=== PATIENT | female | born 1940 | race Caucasian/White ===

== ENCOUNTER → 2018-07-07 | Outpatient (CLI) | payer MEDICARE, OTHER ==
[2018-07-07 11:19] LABS: BASOPHILS # (AUTO) 0.03 x10^3/uL (0-0.1); BASOPHILS % (AUTO) 0 % (0-1); EOSINOPHILS # (AUTO) 0.23 x10^3/uL (0-0.4); EOSINOPHILS % (AUTO) 3 % (1-7); LYMPHOCYTES # (AUTO) 2.12 x10^3/uL (1-3.4); LYMPHOCYTES % (AUTO) 30 % (22-44); MD NO; MEAN CORPUSCULAR HEMOGLOBIN 29.4 pg (27.0-34.8); MEAN CORPUSCULAR HGB CONC 33.7 g/dL (32.4-35.8); MEAN CORPUSCULAR VOLUME 87.1 fL (80-100); MEAN PLATELET VOLUME 10.5 fL (7.4-10.4); MONOCYTES # (AUTO) 0.68 x10^3/uL (0.2-0.8); MONOCYTES % (AUTO) 9 % (2-9); NEUTROPHILS # (AUTO) 4.13 x10^3/uL (1.8-6.8); NEUTROPHILS % (AUTO) 58 % (42-75); PLATELET COUNT 210 x10^3/uL (130-400); RED BLOOD COUNT 4.69 x10^6/uL (3.82-5.3); RED CELL DISTRIBUTION WIDTH 14.1 % (9.6-15.2)
[2018-07-07 11:29] LABS: ANION GAP 5 mmol/L (5-15); CALCIUM 9.4 mg/dL (8.5-10.1); CHLORIDE 108 mmol/L (98-107); CREATININE 0.76 mg/dL (0.55-1.02)
== END | disposition home or self-care (01) ==
LOC: STAR 09:38
PROVIDERS: ATTEND Orthopaedic Surgery
DX: Z01.818 Encounter for other preprocedural examination (principal); M17.12 Unilateral primary osteoarthritis, left knee
CPT/HCPCS: 36415; 80048; 85025; 87081; 87147; 93005

== ENCOUNTER 2018-07-21 05:54 | Observation (INO) | payer MEDICARE, OTHER ==
[~2018-07-21] VITALS: Ht 157.5 cm; Wt 76.9 kg
[~2018-07-21 05:54] MED LIST: ASPI-496 PO; CYAN10005 PO; LEVO75TA5 PO; SIMV20TA3 PO; UBID100C24 PO; Vitamin D3 PO
[2018-07-21] MEDS ORDERED: TRANEXAMIC ACID 100 MG/ML, 10ML ONE (06:07)
[2018-07-21] MEDS ORDERED: KETOROLAC 60 MG/2 ML ONE (06:07)
[2018-07-21] MEDS ORDERED: SODIUM CHLORIDE 0.9% 50 ML ONE (06:08)
[2018-07-21] MEDS ORDERED: VANCOMYCIN 1,000 MG ONE (06:08)
[2018-07-21] MEDS ORDERED: EPINEPHRINE 1 MG/ML, 1ML ONE (06:08)
[2018-07-21] MEDS ORDERED: ROPIvacaine/PF 0.2%, 20 ML ONE (06:08)
[2018-07-21] MEDS ORDERED: LACTATED RINGERS 1,000 ML IV SCH (06:26)
[2018-07-21] MEDS ORDERED: GABAPENTIN 300 MG CAPSULE PO ONE (06:30)
[2018-07-21] MEDS ORDERED: ACETAMINOPHEN 500 MG TABLET PO ONE (06:30)
[2018-07-21] MEDS ORDERED: FENTANYL PF 250 MCG/5ML ONE (06:43)
[2018-07-21] MEDS ORDERED: MIDAZOLAM 1 MG/ML, 2ML ONE (06:43)
[2018-07-21] MEDS ORDERED: ALBUTEROL/IPRATROPIUM 2.5MG/0.5MG, 3 ML NPPB PRN (08:00)
[2018-07-21] MEDS ORDERED: MIDAZOLAM 1 MG/ML, 2ML IV PRN (08:00)
[2018-07-21] MEDS ORDERED: FENTANYL PF 100 MCG/2ML IV PRN (08:00)
[2018-07-21] MEDS ORDERED: PROMETHAZINE 25 MG/ML, 1ML IV PRN (08:00)
[2018-07-21] MEDS ORDERED: hydrALAzine 20 MG/ML, 1ML IV PRN (08:00)
[2018-07-21] MEDS ORDERED: HYDROmorphone 2 MG/ML, 1ML IVPush PRN ×2 (08:00→09:00)
[2018-07-21] MEDS ORDERED: ONDANSETRON 2MG/ML, 2ML IV PRN (08:00)
[2018-07-21] MEDS ORDERED: OXYcodone 5 MG/5 ML ORAL.SOL UDC PO PRN (08:00)
[2018-07-21] MEDS ORDERED: ONDANSETRON 2MG/ML, 2ML ONE (08:01)
[2018-07-21] MEDS ORDERED: LIDOCAINE-MPF 2% ,5ML ONE (08:01)
[2018-07-21] MEDS ORDERED: DEXAMETHASONE 4 MG/ML, 1ML ONE (08:01)
[2018-07-21] MEDS ORDERED: BUPIVACAINE/PF 0.25% ONE (08:01)
[2018-07-21] MEDS ORDERED: PROPOFOL 10 MG/ML, 20ML ONE (08:01)
[2018-07-21] MEDS ORDERED: CEFAZOLIN 1,000 MG ONE (08:01)
[2018-07-21] MEDS: D5%-0.45% NACL 1,000 ML IV SCH ×3 (08:40→22:55)
[2018-07-21] MEDS: LEVOTHYROXINE 75 MCG TABLET PO SCH (09:00)
[2018-07-21] MEDS ORDERED: PROMETHAZINE 12.5 MG SUPP PR PRN (09:00)
[2018-07-21] MEDS ORDERED: DEXAMETHASONE 4 MG/ML, 1ML IVPush SCH (09:00)
[2018-07-21] MEDS ORDERED: DIAZEPAM 5 MG TABLET PO PRN (09:00)
[2018-07-21] MEDS ORDERED: BISACODYL 10 MG SUPP PR PRN (09:00)
[2018-07-21] MEDS ORDERED: ONDANSETRON 4 MG TABLET PO PRN (09:00)
[2018-07-21] MEDS ORDERED: HYDROcodone/APAP 5/325 TABLET PO PRN (09:00)
[2018-07-21] MEDS ORDERED: MAGNESIUM HYDROXIDE 8%, 30ML UDC PO PRN (09:00)
[2018-07-21] MEDS ORDERED: METOCLOPRAMIDE 10MG TABLET PO PRN (09:00)
[2018-07-21] MEDS ORDERED: ZOLPIDEM 5MG TABLET PO PRN (09:00)
[2018-07-21] MEDS ORDERED: DIPHENHYDRAMINE 50 MG CAPSULE PO PRN (09:00)
[2018-07-21] MEDS: ASCORBIC ACID 500 MG TABLET PO SCH (09:00)
[2018-07-21] MEDS: FERROUS SULFATE 325 MG TABLET PO SCH ×2 (09:00→17:25)
[2018-07-21] MEDS ORDERED: METOCLOPRAMIDE 5 MG/ML, 2ML IVPush PRN (09:00)
[2018-07-21] MEDS: DOCUSATE 100 MG CAPSULE PO SCH ×2 (09:00→20:38)
[2018-07-21] MEDS: ACETAMINOPHEN 325 MG TABLET PO SCH ×3 (09:00→20:37)
[2018-07-21] MEDS ORDERED: SENNA/DOCUSATE TABLET PO PRN (09:00)
[2018-07-21] MEDS ORDERED: PROMETHAZINE 25 MG/ML, 1ML IM PRN (09:00)
[2018-07-21] MEDS: MULTIVITAMINS/MINERALS TABLET PO SCH (09:00)
[2018-07-21] MEDS ORDERED: ALUMINUM/MAG/SIMETHICONE 30 ML UDC PO PRN (09:00)
[2018-07-21] MEDS ORDERED: TRANEXAMIC ACID 1,000 MG in SODIUM CHLORIDE 0.9% 100 ML IVPB ONE (09:30)
[2018-07-21 09:50] VITALS: BP 143/74
[2018-07-21] MEDS: KETOROLAC 30 MG/1 ML IV SCH ×2 (10:00→17:25)
[2018-07-21] MEDS: CALCIUM/VITAMIN D3 250-125 TABLET PO SCH ×2 (11:49→17:25)
[2018-07-21 13:03] VITALS: BP 123/69
[2018-07-21] MEDS: CEFAZOLIN PMX 1GM/50ML 50 ML IVPB SCH ×2 (15:13→22:51)
[2018-07-21] MEDS ORDERED: ASPIRIN 81 MG TABLET EC PO SCH (18:00)
[2018-07-21 19:00] VITALS: BP 109/64
[2018-07-21] MEDS ORDERED: SIMVASTATIN 20 MG TABLET PO SCH (21:00)
[2018-07-21 23:48] VITALS: BP 130/58
[2018-07-22] MEDS: KETOROLAC 30 MG/1 ML IV SCH (02:01)
[2018-07-22] MEDS: ACETAMINOPHEN 325 MG TABLET PO SCH ×2 (03:00→08:24)
[2018-07-22 03:41] VITALS: BP 108/65
[2018-07-22] MEDS ORDERED: DEXAMETHASONE 4 MG/ML, 1ML IVPush ONE (06:00)
[2018-07-22] MEDS ORDERED: RIVAROXABAN 10 MG TABLET PO SCH (06:00)
[2018-07-22 07:57] VITALS: BP 109/65
[2018-07-22] MEDS: FERROUS SULFATE 325 MG TABLET PO SCH (08:23)
[2018-07-22] MEDS: LEVOTHYROXINE 75 MCG TABLET PO SCH (08:24)
[2018-07-22] MEDS: ASCORBIC ACID 500 MG TABLET PO SCH (08:25)
[2018-07-22] MEDS: DOCUSATE 100 MG CAPSULE PO SCH (08:25)
[2018-07-22] MEDS: CALCIUM/VITAMIN D3 250-125 TABLET PO SCH ×2 (08:25→12:39)
[2018-07-22] MEDS: MULTIVITAMINS/MINERALS TABLET PO SCH (08:25)
[2018-07-22] MEDS: D5%-0.45% NACL 1,000 ML IV SCH (08:28)
[2018-07-22] MEDS ORDERED: HYDR-3653 PO (11:16)
== END 2018-07-22 13:35 | disposition home or self-care (01) ==
LOC: OUT 05:54 → ORIP 08:40 → 4NOR 09:40 → DCLOUNGE 07-22 13:19
PROVIDERS: ADMIT Orthopaedic Surgery; ATTEND Orthopaedic Surgery
DX: M17.12 Unilateral primary osteoarthritis, left knee (principal); M21.162 Varus deformity, not elsewhere classified, left knee; E07.9 Disorder of thyroid, unspecified; M81.0 Age-related osteoporosis without current pathological fracture; Z86.718 Personal history of other venous thrombosis and embolism; Z79.899 Other long term (current) drug therapy
CPT/HCPCS: 27447; 36415; 73560; 85014; 85018; 96365; 96366; 96372; 96375; 96376; 97110; 97161; 97165; C1713; C1776; G0378; J0171; J0690; J1100; J1885; J2250; J2405; J2550; J2704; J2795; J3010; J3370; J3490; J7120; Q0162